=== PATIENT | female | born 1995 | race Two or more races ===

== ENCOUNTER 2020-09-23 19:52 | Emergency (ER) | payer OTHER, SELFPAY ==
[2020-09-23 20:07] VITALS: BP 122/71; PULSE 83; RESP 18; TEMP 37.1; O2SAT 100
== END 2020-09-23 22:57 | disposition left against medical advice (07) ==
PROVIDERS: Emergency Provider Emergency Medicine; PCP Internal Medicine
DX: R10.9 Unspecified abdominal pain (principal)

== ENCOUNTER 2020-09-27 15:57 | Emergency (ER) | payer OTHER, SELFPAY ==
--- NOTE | 2020-09-27 16:09 | ED.ABDPAIN ---
HPI - Abdominal Pain General Chief Complaint: Abdominal Pain Stated Complaint: back pain, nausea ??, fell last night Time Seen by Provider: 09/27/20 16:09 Source: patient Mode of arrival: ambulatory Limitations: no limitations History of Present Illness HPI narrative: Primary placed her on cipro for UTI, no helping but does not have UTI symptoms but now with question of positive test. LMP 08/21. she missed her last period she is on depo. No spotting no blood in her urine. History of prior terminations and one child 9 years old MD elicited complaint: abdominal pain and flank pain Onset (ago): day(s) Location: other (lumbar) Severity: mild Quality: aching Related Data Allergies Allergy/AdvReac Type Severity Reaction Status Date / Time SHELLFISH Allergy Mild RASH Uncoded 05/24/20 16:12 shellfish Allergy Unknown rash Uncoded 10/25/11 00:00 Review of Systems Constitutional: Reports no additional constitutional complaints Eyes: Reports no additional eye complaints Denies dizziness Cardiovascular: Reports no additional cardiovascular complaints Respiratory: Reports as per HPI Gastrointestinal: Reports no additional gastrointestinal complaints Genitourinary: Reports no additional female genitourinary complaints Musculoskeletal: Reports no additional musculoskeletal complaints Skin/Breast: Denies rash Reports system reviewed and no additional complaints, except as documented, Denies dizziness and Denies Sensory deficit (Neuro) Psychiatric: Denies anxiety Physical Exam Vital Signs: Vital Signs: Last Vital Signs Pulse 86 09/27/20 16:11 Resp 18 09/27/20 16:11 BP 134/81 09/27/20 16:11 Pulse Ox 99 09/27/20 16:11 Body Mass Index 25.3 Const: General: healthy appearing Nutritional Appearance: average body habitus Orientation/consciousness: oriented to person and patient oriented x3 Limitations: no limitations HENMT: Head: Yes normal to inspection Ears: external ears normal General nose exam: Normal external nose present Mouth: Normal oral and palatal mucosa present and oropharynx normal Throat: Yes posterior oropharynx normal Eyes: General: appearance normal, both eyes and all related structures Neck: Other: supple Neck: Yes normal visual inspection Chest: Chest palpation & inspection: normal inspection of the chest Resp: Auscultation: clear to auscultation bilaterally Cardio: Jugular venous distension: no JVD Rate: regular rate Rhythm: regular rhythm Heart sounds: S1 normal heart sound present and S2 normal heart sound present GI: Inspection: Yes normal to inspection Palpation (GI): Soft to palpation, nontender and No hepatosplenomegaly present Auscultation: normal bowel sounds : General: Yes no CVA tenderness Back/Spine/Pelvis: Back: no CVA tenderness Skin: General skin exam: no rashes or lesions noted Neuro: General: oriented to person and patient oriented x3 Cranial nerves: Yes CN's II-XII intact bilaterally Motor exam (neuro): 5/5 motor strength present throughout Sensory Exam: No Sensory deficit (Neuro) Extrem: General: Yes normal to inspection Psych: Appearance: grossly normal Course Course Course Narrative: UA is negative will stop cipro, patient is MDM - Abdominal Pain MDM Narrative Medical decision making narrative: patient is , no pelvic or abdominal pain will not work up for ectopic Lab Data Labs: Lab Results 09/27/20 Range/Units 16:35 Urine Color YELLOW Urine Appearance CLEAR Urine pH 6.0 (5.0-8.0) Ur Specific [place] >= 1.030 H (1.005-1.025) Urine Protein NEG (NEG-TRACE) MG/DL Urine Glucose (UA) NEG (NEG) MG/DL Urine Ketones NEG (NEG) MG/DL Urine Blood NEG (NEG) Urine Nitrite NEG (NEG) Ur Leukocyte Esterase NEG (NEG) Urine Test POSITIVE H (NEGATIVE) Discharge Plan Discharge Clinical Impression: Qualifiers: Weeks of gestation: less than 8 weeks Qualified Code(s): Z3A.01 - Less than 8 weeks gestation of Patient Disposition: Home, Self-Care Instructions: (ED) Referrals: Sebastian Snyder MD [Primary Care Provider] - 2 days [facility] Past Medical History Medical History No known health problems Social History Social History Smoking Status: Never smoker Use of substances other than those prescribed or required for medical reasons: Yes Substance Use Type: Marijuana Substance Use Frequency: Daily Advance Directives: No Advance Directives Information Provided: Yes
[2020-09-27 16:11] VITALS: BP 134/81; PULSE 86; RESP 18; O2SAT 99; BMI 25.3
--- NOTE | 2020-09-27 16:39 | PC.NURSE ---
pt denies abd pain at this time, just some discomfort in the back area but is having some nausea
[2020-09-27 16:45] LABS: Glucose Urine UA NEG (NEG); Leukocyte Esterase Urine NEG (NEG); Nitrite Urine NEG (NEG); Specific Gravity - Urine >= 1.030 (1.005-1.025); Urine Blood NEG (NEG); Urine Ketones NEG (NEG); Urine Protein NEG (NEG-TRACE)
[2020-09-27 16:48] LABS: Appearance Urine CLEAR; Color Urine YELLOW
[2020-09-27 16:50] LABS: UPreg QC Valid YES; Urine Pregnancy POSITIVE (NEGATIVE)
== END 2020-09-27 17:46 | disposition home or self-care (01) ==
PROVIDERS: Emergency Provider Emergency Medicine; PCP Internal Medicine
DX: O26.91 Pregnancy related conditions, unspecified, first trimester (principal); R10.9 Unspecified abdominal pain; Z3A.08 8 weeks gestation of pregnancy
CPT/HCPCS: 81003; 81025; 99282; 99284

== ENCOUNTER 2023-03-19 10:55 | Emergency (ER) | payer OTHER, SELFPAY ==
--- NOTE | 2023-03-19 11:24 | ED_ITS ---
HPI - General Adult General Chief complaint: Abdominal Pain Stated complaint: fever body swelling headache multi complaints Related Data Allergies Allergy/AdvReac Type Severity Reaction Status Date / Time SHELLFISH Allergy Mild RASH Uncoded 05/24/20 16:12 shellfish Allergy Unknown rash Uncoded 10/25/11 00:00 [facility] Past Medical History Medical History No known health problems Social History Social History Substance Use Type: Marijuana Advance Directives: No Physical Exam ED Vital Signs: Vital Signs - 24 hr 03/19/23 11:27 Temperature 98.2 F Pulse Rate 75 Respiratory Rate 16 Blood Pressure 125/81 Pulse Oximetry 100 Oxygen Delivery Method Room Air BMI result Body Mass Index 28.2 Course Course Course Narrative: This is a rapid medical exam: Additional HPI, ROS, PE not included below will be deferred to primary provider. Patient is a 27-year-old female presenting to the emergency department with complaint of bloating, generalized edema, headache, and low back pain for several days. Patient took mifepristone and misoprostol last , felt ok Thursday and Thursday, then Thursday was passing blood clots, changing pad frequently. Since then she has developed back pain, headache and generalized edema. Has not used the prescribed ibuprofen. Denies any dysuria or other urinary symptoms. Denies any fever today, felt hot/chills yesterday but did not check temp. Plan: labs, UA 16:39 Notified by Cinthia in ultrasound that they have attempted to call patient in from waiting room for U/S for the past two hours with no answer. Telephone call to patient to notify her of concern for retained products of conception based on lab results. Advised patient of risk for infection up to and including sepsis and . Patient stated that she needed to leave the waiting room to care for her children at home but will return as soon as possible. Medical Decision Making Lab Data 03/19/23 11:40 03/19/23 11:39 Labs: Lab Results 03/19/23 03/19/23 03/19/23 Range/Units 11:39 11:40 11:40 WBC 7.1 (4.8-10.8) X10*3/uL RBC 3.00 L (4.20-5.50) X10*6/uL Hgb 9.2 L (12.0-16.0) g/dl Hct 27.7 L (37.0-47.0) % MCV 92.3 (80.0-98.0) fL MCH 30.7 (27.0-33.0) pg MCHC 33.2 (31.0-35.0) g/dl RDW 12.6 (11.0-16.0) % Plt Count 238 (160-400) X10*3/uL MPV 11.5 (9.4-12.3) fL Immature Gran % (Auto) 0.3 (0.0-0.4) % Neut % (Auto) 57.8 (45-73) % Lymph % (Auto) 33.9 (20-40) % [place] % (Auto) 5.4 (2-11) % Eos % (Auto) 2.0 (0-4) % Baso % (Auto) 0.6 (0-2) % Lymph # (Auto) 2.4 (1.2-4.9) X10*3/uL [place] # (Auto) 0.4 (0.1-1.2) X10*3/uL Eos # (Auto) 0.1 (0.0-0.4) X10*3/uL Baso # (Auto) 0.0 (0.0-0.2) X10*3/uL Abs Immat Gran (auto) 0.02 (0.00-0.03) X10*3/uL Absolute Neuts (auto) 4.1 (2.0-8.3) x10*3/uL Absolute Nucleated RBC 0.000 (0.0-0.012) X10*3/uL Nucleated RBC % (auto) 0.0 (0.0-0.2) /100WBC Sodium 140 (135-145) mmol/L Potassium 4.0 (3.3-5.1) mmol/L Chloride 106 (96-108) mmol/L Carbon Dioxide 27 (22-29) mmol/L Anion Gap 11 L (12-20) BUN 7 L (9-16) mg/dL Creatinine 0.71 (0.5-1.4) mg/dL Estim Creat Clear Calc 102.9 Estimated GFR > 60 Random Glucose 85 (60-115) mg/dL Calcium 9.6 (8.4-10.2) mg/dL Beta HCG, Quant 5722 mIU/mL Urine Color Urine Appearance Urine pH (5.0-9.0) Ur Specific [place] (1.005-1.025) Urine Protein (Neg-Trace) mg/dL Urine Glucose (UA) (Negative) mg/dL Urine Ketones (Negative) mg/dL Urine Blood (Negative) Urine Nitrite (Negative) Ur Leukocyte Esterase (Negative) Urine RBC (0-2) /HPF Urine WBC (0-5) /HPF Ur Squamous Epith Cells (0-2) /HPF Urine Bacteria (None Seen) Hyaline Casts (0-2) /LPF 03/19/23 Range/Units 11:40 WBC (4.8-10.8) X10*3/uL RBC (4.20-5.50) X10*6/uL Hgb (12.0-16.0) g/dl Hct (37.0-47.0) % MCV (80.0-98.0) fL MCH (27.0-33.0) pg MCHC (31.0-35.0) g/dl RDW (11.0-16.0) % Plt Count (160-400) X10*3/uL MPV (9.4-12.3) fL Immature Gran % (Auto) (0.0-0.4) % Neut % (Auto) (45-73) % Lymph % (Auto) (20-40) % [place] % (Auto) (2-11) % Eos % (Auto) (0-4) % Baso % (Auto) (0-2) % Lymph # (Auto) (1.2-4.9) X10*3/uL [place] # (Auto) (0.1-1.2) X10*3/uL Eos # (Auto) (0.0-0.4) X10*3/uL Baso # (Auto) (0.0-0.2) X10*3/uL Abs Immat Gran (auto) (0.00-0.03) X10*3/uL Absolute Neuts (auto) (2.0-8.3) x10*3/uL Absolute Nucleated RBC (0.0-0.012) X10*3/uL Nucleated RBC % (auto) (0.0-0.2) /100WBC Sodium (135-145) mmol/L Potassium (3.3-5.1) mmol/L Chloride (96-108) mmol/L Carbon Dioxide (22-29) mmol/L Anion Gap (12-20) BUN (9-16) mg/dL Creatinine (0.5-1.4) mg/dL Estim Creat Clear Calc Estimated GFR Random Glucose (60-115) mg/dL Calcium (8.4-10.2) mg/dL Beta HCG, Quant mIU/mL Urine Color Yellow Urine Appearance Clear Urine pH 6.5 (5.0-9.0) Ur Specific [place] 1.020 (1.005-1.025) Urine Protein Negative (Neg-Trace) mg/dL Urine Glucose (UA) Negative (Negative) mg/dL Urine Ketones Negative (Negative) mg/dL Urine Blood Large (3+) H (Negative) Urine Nitrite Negative (Negative) Ur Leukocyte Esterase Trace H (Negative) Urine RBC 3-5 H (0-2) /HPF Urine WBC 0-5 (0-5) /HPF Ur Squamous Epith Cells 6-10 (0-2) /HPF Urine Bacteria None Seen (None Seen) Hyaline Casts 0-2 (0-2) /LPF Discharge Plan Discharge Clinical Impression: Abdominal pain Patient Disposition: Elopement Discharge Date/Time: 03/19/23 15:56
[2023-03-19 11:27] VITALS: BP 125/81; PULSE 75; RESP 16; TEMP 36.8; O2SAT 100; BMI 28.2
[2023-03-19 11:45] LABS: MANUAL DIFF FLAG NO
[2023-03-19 11:50] LABS: Basophils Percent Auto 0.6 % (0-2); Eosinophils Absolute Auto 0.1 X10*3/uL (0.0-0.4); Hematocrit 27.7 % (37.0-47.0); Hemoglobin 9.2 g/dl (12.0-16.0); Imm Gran Abs Auto 0.02 X10*3/uL (0.00-0.03); Imm Gran Pct Auto 0.3 % (0.0-0.4); Lymphocytes Absolute Auto 2.4 X10*3/uL (1.2-4.9); Lymphocytes Percent Auto 33.9 % (20-40); Mean Corpuscular HGB Conc 33.2 g/dl (31.0-35.0); Mean Corpuscular Hemoglobin 30.7 pg (27.0-33.0); Mean Corpuscular Volume 92.3 fL (80.0-98.0); Mean Platelet Volume 11.5 fL (9.4-12.3); Monocytes Absolute Auto 0.4 X10*3/uL (0.1-1.2); Monocytes Percent Auto 5.4 % (2-11); Neutrophils Absolute Auto 4.1 x10*3/uL (2.0-8.3); Neutrophils Percent Auto 57.8 % (45-73); Platelet Count 238 X10*3/uL (160-400); Red Cell Distribution Width 12.6 % (11.0-16.0); White Blood Count 7.1 X10*3/uL (4.8-10.8)
[2023-03-19 11:51] LABS: Appearance Urine Clear; Color Urine Yellow; Glucose Urine UA Negative (Negative); Leukocyte Esterase Urine Trace (Negative); Nitrite Urine Negative (Negative); PH 6.5 (5.0-9.0); UMIC TRIGGER UACC YES; Urine Blood Large (3+) (Negative); Urine Ketones Negative (Negative); Urine Protein Negative (Neg-Trace)
[2023-03-19 11:58] LABS: Bacteria Urine None Seen (None Seen); Hyaline Casts Urine 0-2 /LPF (0-2); WBC Urine 0-5 /HPF (0-5)
[2023-03-19 12:01] LABS: Anion Gap 11 (12-20); Blood Urea Nitrogen 7 mg/dL (9-16); Calcium 9.6 mg/dL (8.4-10.2); Carbon Dioxide 27 mmol/L (22-29); Chloride 106 mmol/L (96-108); Creatinine Clr Calc Pharmacy 102.9; Estimated Glomerular Filt Rate > 60; Glucose Random 85 mg/dL (60-115); Sodium 140 mmol/L (135-145)
[2023-03-19 12:09] LABS: HCG Quantitative 5722 mIU/mL
== END 2023-03-19 15:56 | disposition left against medical advice (07) ==
PROVIDERS: Registered Nurse Emergency; Emergency Provider Emergency Medicine
DX: R50.9 Fever, unspecified (principal); R51.9 Headache, unspecified; R10.9 Unspecified abdominal pain; R60.0 Localized edema; M54.50 Low back pain, unspecified; Z79.899 Other long term (current) drug therapy
CPT/HCPCS: 36415; 80048; 81001; 84702; 85025; 99282; 99283

== ENCOUNTER 2023-03-19 17:31 | Emergency (ER) | payer OTHER, SELFPAY ==
--- NOTE | ~2023-03-19 | US_ITS ---
EXAMINATION: US OBSTETRICAL ULTRASOUND CLINICAL INFORMATION: Rule out retained products. Elective one week ago. Now with lower abdominal pain. COMPARISON: None recent. TECHNIQUE: Transabdominal and transvaginal imaging of pelvis is performed. FINDINGS: There is a retroverted uterus with no intrauterine seen. The endometrium is thickened and heterogeneous measuring 2.3 cm with hypervascularity. Question retained products of conception. There is small nabothian cysts seen in the cervix. The right ovary measures 3.1 x 1.5 x 1.2 cm and appears unremarkable. Left ovary measures 2.0 x 2.4 x 2.1 cm . There is a large septated complex cyst in left adnexa likely paraovarian cyst. It measures 9.3 x 10.6 x 6.3 cm. It is noncommunicating to the left ovary. There is no free fluid in the cul-de-sac US/US OB pelvic and transvaginal IMPRESSION: No intrauterine seen. There is a thickened endometrium likely retained products of conception with slight hypervascularity. Small nabothian cysts. Large complex septated cyst left adnexa appears noncommunicating to the left ovary.
[2023-03-19 17:36] VITALS: BP 127/71; PULSE 84; RESP 14; TEMP 36.9; O2SAT 97; BMI 28.8
--- NOTE | 2023-03-19 17:51 | ED_ITS ---
HPI - Female Genitourinary General Chief complaint: Abdominal Pain Stated complaint: abnormal labs Time Seen by Provider: 03/19/23 17:43 Source: patient Mode of arrival: ambulatory Limitations: no limitations History of Present Illness HPI Narrative: This is a 27 years old now AB4 presents emergency department complaining of abdominal cramps back pain. She states she had an elective on (1 week ago) she was given prostagnandin she is here today because she has lower abdominal pain she has minimal vaginal bleeding Pertinent past history: prior miscarriages Severity: mild Female Urogenital Radiation: Non-Radiating Quality of pain: cramping Consistency: constant Associated symptoms: abdominal pain Treatment prior to arrival: none Related Data : 6 Para: 2 Total number of abortions (spontaneous and elective): 4 Allergies Allergy/AdvReac Type Severity Reaction Status Date / Time SHELLFISH Allergy Mild RASH Uncoded 05/24/20 16:12 shellfish Allergy Unknown rash Uncoded 10/25/11 00:00 Review of Systems Constitutional: Constitutional: Reports no additional constitutional com plaints Cardiovascular: Cardiovascular: Reports no additional cardiovascular complaints Gastrointestinal: Gastrointestinal: Reports no additional gastrointestinal complaints Hematologic/Lymphatic: Hematologic/Lymphatic: Reports no additional hematologic/lymphatic complaints [facility] Past Medical History Attestation statement: The following information was validated with the patient. [facility] Narrative: denies any medical problems Medical History No known health problems : 6 Para: 2 Total number of abortions (spontaneous and elective): 4 Social History Social History Alcohol intake: current Alcohol intake frequency: holidays/special occasions only Smoked in Last 30 Days: No Use of substances other than those prescribed or required for medical reasons: Yes Substance Use Type: Marijuana Advance Directives: No Advance Directives Information Provided: No Physical Exam 2 Vital Signs: Vital Signs: Last Vital Signs Temp 98.1 F 03/19/23 19:39 Pulse 81 03/19/23 19:39 Resp 98 H 03/19/23 19:39 BP 119/72 03/19/23 19:39 Pulse Ox 99 03/19/23 19:39 O2 Del Method Room Air 03/19/23 19:39 BMI result Body Mass Index 28.8 Const: General: cooperative, healthy appearing, comfortable, no acute distress, well developed and alert Nutritional Appearance: well nourished Orientation/consciousness: patient oriented x3 Limitations: no limitations HEENT: Head: Yes normal to inspection General nose exam: Normal external nose present Face and sinus: Yes normal facial exam Mouth: Normal oral and palatal mucosa present Throat: Yes posterior oropharynx normal Neck: Neck: Yes normal visual inspection and Yes full ROM Chest: Chest palpation & inspection: normal inspection of the chest Resp: Effort & Inspection: normal respiratory effort Auscultation: clear to auscultation bilaterally Cardio: Jugular venous distension: no JVD Rate: regular rate Rhythm: regular rhythm GI: Inspection: Yes normal to inspection Palpation (GI): Soft to palpation, not firm and nontender : Other: pt refused pelvic exam Skin: General skin exam: no rashes or lesions noted and elasticity normal Neuro: General: patient oriented x3 Course Reevaluation(s) Reevaluation #1: discussed with Dr Griffith clinical picture does not suggest an ectopic , the patient reports a documented IUP prior to elective , also clinical picture does not stop suggest a torsion pain is mild crampy she did not ask me for pain medication, also clinical picture does not suggest retained products of conception because she really does not have any bleeding. Quant is dropping from this morning will give the patient return instruction and Time: 20:29 Medications Administered Discontinued Medications Generic Name Dose Route Start Last Admin Trade Name Ohq PRN Reason Stop Dose Admin Ibuprofen 800 mg 03/19/23 17:50 03/19/23 18:48 Ibuprofen 800 Mg Tablet PO 03/19/23 17:51 800 mg ONCE ONE Administration Medical Decision Making Medical Decision Making [facility] Narrative: She presented with abdominal pain post elective no vaginal bleeding she looks well she has no fever an ultrasound anyway baseline blood work and reassess. The ultrasound showed no IUP, but patient reports that she had an IUP pre e lective therefore an ectopic is very very unlikely, quant is dropping from this morning ;she has a large left ovarian cyst but the clinical patient is no consistent with an ovarian torsion pain is a gradual is no sudden she has no pain at this time. Also clinical picture is no consistent with retained product she has no bleeding. Is was discussed with the on-call OB Dr. Griffith will discharge with return instruction Pt is very comfortable with the plan of care Differential Diagnosis Differential Diagnoses: The differential diagnosis associated with the presentation includes Incomplete /ectopic /retained products of conception Admission/Observation Consideration of admission/observation: Escalation of care including adm ission/observation considered Lab Data MDM Lab Attestation statement: I reviewed the patient's lab results. 03/19/23 18:38 Labs: Lab Results 03/19/23 03/19/23 03/19/23 Range/Units 18:38 18:38 19:29 WBC 7.6 (4.8-10.8) X10*3/uL RBC 2.83 L (4.20-5.50) X10*6/uL Hgb 8.8 L (12.0-16.0) g/dl Hct 26.6 L (37.0-47.0) % MCV 94.0 (80.0-98.0) fL MCH 31.1 (27.0-33.0) pg MCHC 33.1 (31.0-35.0) g/dl RDW 12.5 (11.0-16.0) % Plt Count 227 (160-400) X10*3/uL MPV 11.7 (9.4-12.3) fL Immature Gran % (Auto) 0.3 (0.0-0.4) % Neut % (Auto) 52.9 (45-73) % Lymph % (Auto) 36.2 (20-40) % [place] % (Auto) 6.5 (2-11) % Eos % (Auto) 3.6 (0-4) % Baso % (Auto) 0.5 (0-2) % Lymph # (Auto) 2.7 (1.2-4.9) X10*3/uL [place] # (Auto) 0.5 (0.1-1.2) X10*3/uL Eos # (Auto) 0.3 (0.0-0.4) X10*3/uL Baso # (Auto) 0.0 (0.0-0.2) X10*3/uL Abs Immat Gran (auto) 0.02 (0.00-0.03) X10*3/uL Absolute Neuts (auto) 4.0 (2.0-8.3) x10*3/uL Absolute Nucleated RBC 0.000 (0.0-0.012) X10*3/uL Nucleated RBC % (auto) 0.0 (0.0-0.2) /100WBC Beta HCG, Quant 5422 mIU/mL Blood Type O Positive Antibody Screen NEGATIVE Independent Interpretation I performed an independent interpretation of an: Ultrasound Radiology Impression Discussion of test interpretation with radiology: I have reviewed the radiologist's reading. Discharge Plan Discharge Clinical Impression: Complete , Ovarian cyst Patient Disposition: Home, Self-Care Instructions: Miscarriage (ED), Ovarian Cyst (ED) Additional Instructions: Ultrasound shows an empty uterus, you do have a large ovarian cyst about 10 cm will need follow-up. Return to the emergency room right away few having severe , . abdominal pain vomiting nausea. Otherwise follow-up we with you on OBGYN or our OBGYN Dr. Griffith Referrals: Bhupendra Griffith MD [Physician] - 1 day Interventions: ED Discharge Assessment Last Done: 03/19/23 21:05 Discharge Date/Time: 03/19/23 21:06
[2023-03-19 18:43] LABS: MANUAL DIFF FLAG NO
[2023-03-19 18:45] LABS: Basophils Percent Auto 0.5 % (0-2); Eosinophils Absolute Auto 0.3 X10*3/uL (0.0-0.4); Eosinophils Percent Auto 3.6 % (0-4); Hematocrit 26.6 % (37.0-47.0); Hemoglobin 8.8 g/dl (12.0-16.0); Imm Gran Abs Auto 0.02 X10*3/uL (0.00-0.03); Imm Gran Pct Auto 0.3 % (0.0-0.4); Lymphocytes Absolute Auto 2.7 X10*3/uL (1.2-4.9); Lymphocytes Percent Auto 36.2 % (20-40); Mean Corpuscular HGB Conc 33.1 g/dl (31.0-35.0); Mean Corpuscular Hemoglobin 31.1 pg (27.0-33.0); Mean Platelet Volume 11.7 fL (9.4-12.3); Monocytes Absolute Auto 0.5 X10*3/uL (0.1-1.2); Monocytes Percent Auto 6.5 % (2-11); Neutrophils Percent Auto 52.9 % (45-73); Platelet Count 227 X10*3/uL (160-400); Red Blood Count 2.83 X10*6/uL (4.20-5.50); Red Cell Distribution Width 12.5 % (11.0-16.0); White Blood Count 7.6 X10*3/uL (4.8-10.8)
[2023-03-19] MEDS: Ibuprofen 800 MG TABLET PO (18:48)
[2023-03-19 19:16] LABS: HCG Quantitative 5422 mIU/mL
[2023-03-19 19:39] VITALS: BP 119/72; PULSE 81; RESP 98; TEMP 36.7; O2SAT 99
--- NOTE | 2023-03-19 20:38 | PC.NURSE ---
MD at bedside. Discussed plan of care with pt. Pt prefers not to have a pelvic exam at this time. Pt encouraged to follow up with [facility] after discharge.
--- NOTE | 2023-03-19 21:30 | P.CONOB_ITS ---
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 [facility] The patient stated that she had an ultrasound prior to medical termination of which document intrauterine In the emergency room H&H at presentation at 11:40 was 9.2/27.7 and was repeated at 11:40 was 8.8/26.6 5722 at 11:40 down to [id number] at 18:40 cc:: CC: OB [facility] Past Medical History Medical History No known health problems Social History Social History Alcohol intake: current Alcohol intake frequency: holidays/special occasions only Smoked in Last 30 Days: No Use of substances other than those prescribed or required for medical reasons: Yes Substance Use Type: Marijuana Advance Directives: No Advance Directives Information Provided: No Meds Allergies Allergy/AdvReac Type Severity Reaction Status Date / Time SHELLFISH Allergy Mild RASH Uncoded 05/24/20 16:12 shellfish Allergy Unknown rash Uncoded 10/25/11 00:00 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 There is a thickened endometrium likely retained products of conception with slight hypervascularity. Small nabothian cysts. Large complex septated cyst left adnexa appears noncommunicating to the left ovary. Assessment and Plan (1) Complex ovarian cyst: Status: Acute Discussed with Dr. Link the finding on pelvic ultrasound showing a large complex ovarian cyst and the differential diagnosis of complex ovarian cyst including but not limited to pre malignant/malignant ovarian pathology. Given the patient abdominal exam being benign, ovarian torsion and/or ovarian cyst ru pture is unlikely, in addition since hCG is trending down and there was evidence of intrauterine prior to medical termination, although the [facility], a is unlikely for the patient to have an ectopic . Recommend the following: symptoms of ovarian torsion and or rupture to be given to the patient, she is to come back to emergency room in case of abdominal pain, nausea or vomiting or vaginal bleeding and to [facility] (2) Abnormal ultrasound of endometrium: Status: Acute Differential diagnosis discussed with Dr. Link of abnormal thickened endometrium includes not limited to retained for products conception, normal post findings and others. Since the patient is not having any vaginal bleeding, no fever or chills, recommended for the patient [facility] and to come back to emergency room overnight in case of vaginal bleeding, fever above 100.4 or vaginal bleeding or any other concerns Time Spent With Patient Time: Total time managing care of this patient today ____ minutes.
== END 2023-03-19 21:06 | disposition home or self-care (01) ==
PROVIDERS: Emergency Provider Emergency Medicine
DX: O03.9 Complete or unspecified spontaneous abortion without complication (principal); N83.299 Other ovarian cyst, unspecified side; Z79.899 Other long term (current) drug therapy
CPT/HCPCS: 36415; 76801; 76817; 84702; 85025; 86850; 86900; 86901; 99284

== ENCOUNTER → 2023-03-19 17:44 | Outpatient (BNV) | payer OTHER, SELFPAY | PROVIDERS: Emergency Provider Emergency Medicine; Visit Provider Obstetrics & Gynecology | DX: N83.299 Other ovarian cyst, unspecified side (principal); R93.5 Abnormal findings on diagnostic imaging of other abdominal regions, including retroperitoneum | CPT/HCPCS: 99283 ==